=== PATIENT | male | born 1965 | race Caucasian/White ===

== ENCOUNTER 2021-07-25 22:31 | Inpatient (IN) | payer MEDICAID ==
[~2021-07-25] VITALS: Ht 152.4 cm; Wt 56.7 kg
--- NOTE | 2021-07-25 22:55 | NUR ---
PT BIB FRIEND FROM CAR C/O WEAKNESS AND FEELING CONFUSED. PT AWAKE A/OX3. ON R/A SATTING AT 95%. CONNECTED PT TO POX AND MONITOR.
[2021-07-25] MEDS ORDERED: IV NS 0.9% 1,000 ML BAG IV ONE (23:00)
--- NOTE | 2021-07-25 23:08 | NUR ---
DRY HEAT ROOM ATTENDANT AT PT'S BEDSIDE
--- NOTE | 2021-07-25 23:13 | NUR ---
LAC #20G S/L PATENT AND INTACT. BLOOD COLLECTED AND GIVEN TO LAB
[2021-07-25 23:23] LABS: BASOPHILS # (AUTO) 0.1 K/uL (0.0-0.2); BASOPHILS % (AUTO) 0.7 % (0.0-2.0); EOSINOPHILS % (AUTO) 0.3 % (0.0-6.0); HEMATOCRIT 53 % (39-51); LYMPHOCYTES # (AUTO) 1.4 K/uL (0.8-4.8); LYMPHOCYTES % (AUTO) 8.8 % (20.0-44.0); MEAN CORPUSCULAR HGB CONC 32 g/dl (31.0-36.0); MEAN CORPUSCULAR VOLUME 96 fL (80-96); MONOCYTES # (AUTO) 1.4 K/uL (0.1-1.30); MONOCYTES % (AUTO) 8.6 % (2.0-12.0); NEUTROPHILS % (AUTO) 81.6 % (43.0-81.0); PLATELET COUNT (AUTO) 293 K/uL (150-450); RED BLOOD CELL COUNT(AUTO) 5.51 MIL/uL (4.5-6.0)
[2021-07-25 23:35] LABS: BILIRUBIN,URINE SMALL (NEGATIVE); COLOR,URINE YELLOW (YELLOW); LEUKOCYTE ESTERASE ,URINE NEGATIVE (NEGATIVE); NITRITE, URINE NEGATIVE (NEGATIVE); PH,URINE 5.5 (5.0-8.0); PROTEIN,URINE 30 mg/dl (NEGATIVE); UGLUCOSE >=1000 mg/dL (NEGATIVE); UROBILINOGEN,URINE 0.2 EU/dL (0.2)
--- NOTE | 2021-07-25 23:40 | NUR ---
COVID SWAB COLLECTED AND SENT TO LAB
--- NOTE | 2021-07-25 23:42 | NUR ---
PT TRANSPORTED TO CT SCAN VIA [facility]
--- NOTE | 2021-07-25 23:48 | NUR ---
PT RETURNED FROM [facility]
[2021-07-26] VITALS (34 sets, daily range): BP systolic 122–168; BP diastolic 55–99
[2021-07-26 00:03] LABS: BACTERIA,URINE None seen /HPF (None Seen); RBC,URINE 0-2 /HPF (0-2); SQUAMOUS EPITHELIAL CELL,UR Few /HPF (None Seen); WBC,URINE 0-2 /HPF (0-3)
[2021-07-26 00:39] LABS: ALANINE AMINOTRANSFERASE 17 U/L (12-78); ALBUMIN 4.6 g/dL (3.4-5.0); ALKALINE PHOSPHATASE 142 U/L (46-116); ASPARTATE AMINOTRANSFERASE 7 U/L (15-37); BILIRUBIN,DIRECT 0.2 mg/dL (0.0-0.2); BILIRUBIN,TOTAL 0.9 mg/dL (0.2-1.0); CALCIUM, SERUM 9.4 mg/dL (8.5-10.1); CHLORIDE 89 mmol/L (98-107); CREATININE 1.8 mg/dL (0.6-1.3); POTASSIUM 5.1 mmol/L (3.5-5.1); SODIUM SERUM 130 mmol/L (136-145); TOTAL PROTEIN, SERUM 8.8 g/dL (6.4-8.2); UREA NITROGEN, BLOOD 33 mg/dL (7-18)
[2021-07-26 00:41] LABS: CARBON DIOXIDE 8 mmol/L (21-32); GLUCOSE 417 mg/dL (74-106)
--- NOTE | 2021-07-26 00:41 | NUR ---
CALL FROM LAB. GLUCOSE [phone]. DR SCOTT NOTIFIED.
[2021-07-26] MEDS ORDERED: POTASSIUM CL. PREMIX PERIPHER. 0 ML ONE (00:54)
[2021-07-26] MEDS ORDERED: INSULIN REGULAR, HUMAN 100 UNIT/ML 10 ML VIAL ONE ×2 (00:54→01:12)
[2021-07-26] MEDS ORDERED: INSULIN REGULAR, HUMAN 100 UNITS in IV NS 0.9% 100 ML IV PRN ×2 (01:00)
[2021-07-26] MEDS ORDERED: IV PREMIX NS +20MEQ KCL 1,000 L IV PRN (01:00)
[2021-07-26] MEDS ORDERED: IV PREMIX NS +20MEQ KCL 1 L IV ONE (01:09)
--- NOTE | 2021-07-26 01:09 | NUR ---
MRSA SWAB COLLECTED AND SENT TO LAB. PATIENT'S BELONGINGS LIST DONE.
--- NOTE | 2021-07-26 01:20 | NUR ---
INSULIN DRIP INITIATED AT 5.05 UNITS/HR PER MD ORDER. POC GLUCOSE [phone] PRIOR TO ADMIN.
[2021-07-26] MEDS ORDERED: IV NS 0.9% 1,000 ML BAG IV ONE (01:30)
[2021-07-26] MEDS ORDERED: ACETAMINOPHEN 325 MG TABLET PO PRN (02:00)
[2021-07-26] MEDS ORDERED: ZOLPIDEM TARTRATE 5 MG TABLET PO PRN (02:00)
[2021-07-26] MEDS ORDERED: DEXTROSE 50%-WATER 50 ML DISP.SYRIN IV PRN ×2 (02:00→13:30)
[2021-07-26] MEDS ORDERED: MAGNESIUM HYDROXIDE 30 ML UDC PO PRN (02:00)
[2021-07-26] MEDS ORDERED: Z GUARD REMEDY 4 OZ OINT TP PRN (02:00)
[2021-07-26] MEDS ORDERED: IV NS 0.9% 1,000 ML IV SCH (02:00)
--- NOTE | 2021-07-26 02:03 | NUR ---
CALLED FOR REPORT NURSE NOT AVAILABLE.
--- NOTE | 2021-07-26 02:10 | NUR ---
REPORT GIVEN TO ED
--- NOTE | 2021-07-26 02:31 | NUR ---
PT TRANSPORTED TO ROOM 261 ON CELLAR SUPERVISOR PER ACLS PROTOCOL WITHOUT INCIDENT. V/S STABLE AT TIME OF TRANSFER
[2021-07-26] MEDS ORDERED: INSULIN REGULAR, HUMAN 100 UNIT in IV NS 0.9% 99 ML IV PRN ×2 (03:00)
[2021-07-26] MEDS: BLOOD SUGAR DIAGNOSTIC 1 EACH STRIP IN SCH ×8 (03:04→21:09)
[2021-07-26 03:20] LABS: CALCIUM, SERUM 8.4 mg/dL (8.5-10.1); CREATININE 1.6 mg/dL (0.6-1.3); MAGNESIUM 2.6 mg/dL (1.8-2.4); POTASSIUM 4.8 mmol/L (3.5-5.1)
[2021-07-26 04:50] LABS: BASOPHILS % (AUTO) 0.3 % (0.0-2.0); HEMATOCRIT 43 % (39-51); HEMOGLOBIN 14.4 g/dL (13.5-17.5); LYMPHOCYTES # (AUTO) 1.8 K/uL (0.8-4.8); LYMPHOCYTES % (AUTO) 13.9 % (20.0-44.0); MEAN CORPUSCULAR HGB CONC 33 g/dl (31.0-36.0); MEAN CORPUSCULAR VOLUME 93 fL (80-96); MONOCYTES # (AUTO) 1.5 K/uL (0.1-1.30); MONOCYTES % (AUTO) 11.5 % (2.0-12.0); NEUTROPHILS # (AUTO) 9.5 K/uL (1.8-8.9); NEUTROPHILS % (AUTO) 74.3 % (43.0-81.0); PLATELET COUNT (AUTO) 242 K/uL (150-450); RED BLOOD CELL COUNT(AUTO) 4.66 MIL/uL (4.5-6.0); WHITE BLOOD COUNT (AUTO) 12.7 K/uL (4.3-11.0)
[2021-07-26 05:13] LABS: CALCIUM, SERUM 7.9 mg/dL (8.5-10.1); CREATININE 1.4 mg/dL (0.6-1.3); MAGNESIUM 2.5 mg/dL (1.8-2.4); PHOSPHORUS 1.9 mg/dL (2.5-4.9); POTASSIUM 3.5 mmol/L (3.5-5.1)
[2021-07-26 05:21] LABS: CHOLESTEROL 188 mg/dL (<200); HDL CHOLESTEROL 51 mg/dL (40-60); LDL 106 mg/dL (0-99); TRIGLYCERIDES 114 mg/dL (30-150)
[2021-07-26] MEDS ORDERED: IV D5/0.45 NACL 1,000 ML IV PRN (05:30)
[2021-07-26] MEDS: Potassium Chloride 40 MEQ in IV D5/0.45 NACL 1,000 ML IV SCH ×3 (07:07→22:57)
--- NOTE | 2021-07-26 07:10 | NUR ---
RN NOTES RECEIVED PT ON BED, A/O X1-2, ON RA, NO SOB NOTED, ON TELE ST HR IN 110'S, PT ON INSULIN DRIP , IV SITES CLEAN,DRY AND INTACT, IVF AT 150CC/HR RUNNING , SR UP x3, CALL LIGHT WITHIN EASY REACH, WILL ENDORSE TO AIRCRAFT ORDNANCE SYSTEMS MECHANIC NURSE FOR CONTINUITY OF CARE .
--- NOTE | 2021-07-26 08:37 | NUR ---
WOUND CARE CONSULT: PT PRESENTS WITH LESION TO RT HEEL AND RASH TO BUTTOCKS, PRESENT ON ADMISSION. RECOMMENDATIONS MADE FOR SKIN PROTECTION. DISCUSSED WITH NURSING STAFF. DPM CONSULT RECOMMENDED. MD IN AGREEMENT WITH PLAN OF CARE. PT ABLE TO ASSIST WITH TURNING AND REPOSITIONING AND IS CONTINENT AT THIS TIME.
[2021-07-26] MEDS: CLOTRIMAZOLE 1% 15 GM TUBE TP SCH ×2 (10:50→16:20)
[2021-07-26] MEDS ORDERED: Sodium Phosphate 30 MMOL in IV NS 0.9% 250 ML IV SCH (11:00)
[2021-07-26 11:57] LABS: CALCIUM, SERUM 8.2 mg/dL (8.5-10.1); CREATININE 1.3 mg/dL (0.6-1.3); POTASSIUM 3.6 mmol/L (3.5-5.1)
[2021-07-26 12:33] LABS: CALCIUM, SERUM 7.9 mg/dL (8.5-10.1); CREATININE 1.2 mg/dL (0.6-1.3); MAGNESIUM 2.6 mg/dL (1.8-2.4); POTASSIUM 3.7 mmol/L (3.5-5.1)
[2021-07-26] MEDS ORDERED: BLOOD SUGAR DIAGNOSTIC 1 EACH STRIP IN SCH (13:30)
[2021-07-26] MEDS: INSULIN REGULAR, HUMAN 100 UNIT/ML 3 ML VIAL SQ PRN ×3 (13:49→21:13)
--- NOTE | 2021-07-26 15:05 | NUR ---
SS Consult: SS received consult for homelessness. Pt. is a 55-year-old male that was brought into the hospital for bizarre behavior and generalized weakness. Pt. was alert and oriented x1. SW attempted to interview pt. and he was not able to provide any significant history. Pt. was responding I dont know and I dont remember to every question that was asked. SW provided resources and left it at bedside. SW will follow-up once pt. is more alert and oriented.
--- NOTE | 2021-07-26 17:00 | NUR ---
RN NOTES RAMANA DECAL CUTTER NOTIFIED REGARDING SBP IN 160'S , NEW ORDER RECEIVED , CONTINUE TO MONITOR
[2021-07-26] MEDS: ONDANSETRON HCL/PF 4 MG/2 ML VIAL IVP PRN (17:03)
--- NOTE | 2021-07-26 18:08 | NUR ---
RN NOTES PT RESTING IN BED , POOR APPTITE, REFUSES TO EAT AT TIMES ,IVF RUNNING AT 75CC/HR , IV SITES CLEAN ,DRY AND INTACT, NO SIGN AND SYMPTOMS OF HYPER AND HYPO GLYCEMIA NOTED, SR UP x3, CALL LIGHT WITHIN EASY REACH, BED LOCKED AND IN LOWEST POSITION, WILL ENDORSE TO RURAL MAIL CONTRACTOR NURSE FOR CONTINUITY OF CARE .
--- NOTE | 2021-07-26 20:00 | NUR ---
ICU NOTES Received patient A/OX2.DX:DKA .VS stable.Normotensive.Respiration and unlabored saturation wnl.IVF infusing and site intact.Patient wants to drink water.Offered Jello but not eating.Patient Independent with bed mobility and sit at the edge of the bed when he voids.Safety measures implemented with call light at bedside.Will monitor blood sugar Q 4 HRS.Denies pain or any discomfort.
[2021-07-26 20:44] LABS: MAGNESIUM 2.3 mg/dL (1.8-2.4); PHOSPHORUS 3.2 mg/dL (2.5-4.9)
[2021-07-26 22:24] LABS: MAGNESIUM 2.4 mg/dL (1.8-2.4); PHOSPHORUS 3.3 mg/dL (2.5-4.9)
[2021-07-27] VITALS (19 sets, daily range): BP systolic 134–172; BP diastolic 74–95
[2021-07-27 00:44] LABS: MAGNESIUM 2.1 mg/dL (1.8-2.4); PHOSPHORUS 1.6 mg/dL (2.5-4.9)
[2021-07-27] MEDS: ONDANSETRON HCL/PF 4 MG/2 ML VIAL IVP PRN ×3 (00:58→22:24)
[2021-07-27] MEDS: INSULIN REGULAR, HUMAN 100 UNIT/ML 3 ML VIAL SQ PRN ×6 (01:37→22:07)
[2021-07-27] MEDS: BLOOD SUGAR DIAGNOSTIC 1 EACH STRIP IN SCH ×6 (01:38→21:26)
[2021-07-27 04:13] LABS: BASOPHILS % (AUTO) 0.5 % (0.0-2.0); EOSINOPHILS % (AUTO) 0.3 % (0.0-6.0); HEMATOCRIT 40 % (39-51); HEMOGLOBIN 13.6 g/dL (13.5-17.5); LYMPHOCYTES # (AUTO) 1.3 K/uL (0.8-4.8); LYMPHOCYTES % (AUTO) 12.3 % (20.0-44.0); MEAN CORPUSCULAR HGB CONC 34 g/dl (31.0-36.0); MEAN CORPUSCULAR VOLUME 91 fL (80-96); MONOCYTES # (AUTO) 1.2 K/uL (0.1-1.30); MONOCYTES % (AUTO) 12.2 % (2.0-12.0); NEUTROPHILS # (AUTO) 7.6 K/uL (1.8-8.9); NEUTROPHILS % (AUTO) 74.7 % (43.0-81.0); PLATELET COUNT (AUTO) 198 K/uL (150-450); RED BLOOD CELL COUNT(AUTO) 4.39 MIL/uL (4.5-6.0); WHITE BLOOD COUNT (AUTO) 10.2 K/uL (4.3-11.0)
[2021-07-27 04:39] LABS: CALCIUM, SERUM 8.3 mg/dL (8.5-10.1); MAGNESIUM 2.1 mg/dL (1.8-2.4); PHOSPHORUS 1.7 mg/dL (2.5-4.9); POTASSIUM 3.3 mmol/L (3.5-5.1)
[2021-07-27] MEDS: MAG HYDROX/AL HYDROX/SIMETH 30 ML UDC PO PRN ×2 (05:03→20:02)
--- NOTE | 2021-07-27 07:00 | NUR ---
RN NOTES RECEIVED PT ON BED, A/O X1-2, ON RA, NO SOB NOTED, ON TELE SR-ST, IV SITES CLEAN,DRY AND INTACT, IVF AT 150CC/HR RUNNING , SR UP x3, CALL LIGHT WITHIN EASY REACH. CONTINUE TO MONITOR
--- NOTE | 2021-07-27 07:09 | NUR ---
END NOTE Patient awake alert oriented x2 but with periods of confusion.RA saturation wnl.SR/ST. Vital signs remain stable.Complaints of heartburns prn medications administered with relief. IVF infusing well.Patient refused AM care he said later.Kept comfortable.Report given to day shift for KONSTANTIN.
[2021-07-27] MEDS: CLOTRIMAZOLE 1% 15 GM TUBE TP SCH ×2 (09:07→16:41)
[2021-07-27] MEDS: Potassium Chloride 40 MEQ in IV D5/0.45 NACL 1,000 ML IV SCH (10:24)
--- NOTE | 2021-07-27 10:28 | NUR ---
RN NOTES PIPER PSCHY NOTIFIED REGARDING PSCHY CONSULT , FACE SHEET FACED
--- NOTE | 2021-07-27 10:30 | NUR ---
Psych consult by Dr. Villalobos has been requested due to reports of pt. being med non-compliant at home due to paranoia and pt. has some confusion that may be associated with his mental health. SW discussed with mason MAZA who is agreeable and SW notified Tucker MAZA covering for Dr. Villalobos stated he will try to see patient today.
[2021-07-27] MEDS: METOCLOPRAMIDE HCL 10 MG/2 ML VIAL IV PRN (10:36)
[2021-07-27] MEDS ORDERED: Sodium Phosphate 30 MMOL in IV NS 0.9% 250 ML IV SCH (11:00)
--- NOTE | 2021-07-27 15:16 | NUR ---
SS Note: SW met with pt. bedside. The pt. is alert & oriented x 4. However, pt. has some lapses in his custodial memory. The pt. appears unkempt, drowsy and some weakness. Charge nurse stated pt. may still be dehydrated. Pt.'s speech is WNL. Pt. 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 Pt. states he olguin his car outside of his friends house (Anshul [facility] [phone]; [id number] [facility] [address]). SW asked pt. if he is able to take care of himself physically while experiencing homelessness. Pt. states "I believe so, I think I buy food with my SSI". SW asked pt. how he manages the diabetes. Pt. stated "it is new". Pt. cannot recall how much he receives monthly from SSI. Pt. denies psych history. Pt. denies SI/HI and denies hallucinations. Pt. denies drug or alcohol abuse. Patient gave SW verbal consent to speak with his friend, Anshul Angel [phone]. Anshul notified SW that pt. has 2 friends with same first name. Anshul stated hes lives in [place] and other friend lives in [place](Anshul [facility] [phone]). Anshul also stated patient's son is Anshul Herrera [phone] and he resides in [place]. Per Anshul, the pt. has a Stroke about 6 months ago due to really elevated blood sugar levels in the "600's" and was then experiencing "hallucinations or delirium". Per Anshul, the pt. was hospitalized for about 2 weeks and was then discharged to a custodial where they helped him manage the diabetes. Per Anshul, the pt. could only remain in that custodial for 1 month and so patient began to live out of his car but patient seemed to be okay for about 1 month and after that pt. began to experience confusion and weakness so they brought him into the hospital. Per Anshul, pt. may not be able to manage the diabetes on his own while experiencing homelessness. SW discussed possible placement at assisted living and pt. is agreeable. Pt. states he is unsure of how much SSI he received monthly. SW discussed with Annalise BOWDEN who will assist with placement. SW will remain available as needed. Pt. signed homeless waiver and it was placed int he chart. Pt. was given homeless resources yesterday and has them at bedside.
--- NOTE | 2021-07-27 15:20 | NUR ---
RN NOTES PT TRANSFERED TO ROOM 327-2 VIA ACLS PROTOCAL IN STABLE CONDITION WITH ALL HIS BELONGINGS , REPORT GIVEN TO MATEO LOPEZ FOR CONTINUITIY OF CARE .
--- NOTE | 2021-07-27 15:36 | NUR ---
E MAIL SYSTEM ADMINISTRATOR NOTES RECEIVED PT FROM [employer] VIA WHEELCHAIR, ASSISTED PT TO BED, MADE COMFORTABLE, ROOM SET UP ORIENTATION PROVIDED, VERBALIZED UNDERSTANDING, PT IS AWAKE AND ALERT, NO COMPLAINT OF PAIN, NOT IN DISTRESS, CALL LIGHT PLACED WITHIN REACH, KEPT PT COMFORTABLE.
--- NOTE | 2021-07-27 18:11 | NUR ---
DIRECTOR OF CONTENT MARKETING NOTES PT IN BED, ASLEEP, EASY TO AROUSE, ALERT AND VERBALLY RESPONSIVE, ENCOURAGED INCREASED PO INTAKE, IV FLUIDS INFUSING WELL, BS CHECKED, INSULIN GIVEN PER SLIDING SCALE ORDERED, KEPT WARM AND COMFORTABLE IN BED.
--- NOTE | 2021-07-27 19:20 | NUR ---
PULMONOLOGIST INTENSIVIST OPENING NOTES RECEIVED PATIENT ON BED AWAKE, ALERT AND ORIENTED X 2. BREATHING IS EVEN AND NONLABORED. ON ROOM AIR, TOLERATING WELL. IN TELE MONITORING WITH READING OF SR HR 79. IN NO ACUTE DISTRESS NOTED. DENIES ANY PAIN OF THIS TIME. WITH IV ACCESS AT LEFT AC G20; PATENT, INTACT AND SALINE LOCKED. WITH ONGOING IV INFUSION AT RIGHT AC OF D5 1/2 NS WITH 40 MEQ KCL REGULATED AT 75 ML/HR ORDERED. ABLE TO MAKE NEEDS KNOWN. SAFETY MEASURES IMPLEMENTED: CALL LIGHT AND TABLE WITHIN EASY REACH, SIDE RAILS IS UP X 2; BED IS IN LOWEST LOCKED POSITION. WILL CONTINUE TO MONITOR
--- NOTE | 2021-07-27 19:40 | NUR ---
COMBINER OPERATOR NOTES COMPLAINED OF HEARTBURN; MAALOX SUSPENSION 30 ML PRN GIVEN ORALLY ORDERED.
--- NOTE | 2021-07-27 21:26 | NUR ---
SMT TECHNICIAN NOTES BLOOD SUGAR CHECKED WITH RESULT OF 136 MG/DL; 2 UNITS OF INSULIN GIVEN PER SLIDING SCALE ORDERED.
[2021-07-27] MEDS ORDERED: INSULIN GLARGINE, 100 UNIT/ML CARTRIDGE SQ SCH (22:00)
--- NOTE | 2021-07-27 22:24 | NUR ---
PRODUCTION SUPPORT DEVELOPER NOTES COMPLAINED OF BEING NAUSEOUS; PRN ZOFRAN 2ML GIVEN IVP ORDERED.
[2021-07-28] VITALS: BP 151/97
[2021-07-28] MEDS: METOCLOPRAMIDE HCL 10 MG/2 ML VIAL IV PRN (01:16)
--- NOTE | 2021-07-28 01:20 | NUR ---
AUTOTRANSFUSIONIST NOTES PATIENT VERBALIZED FEELING NAUSEOUS. METOCLOPRAMIDE HCL 1ML PRN GIVEN IVTT ORDERED. BLOOD SUGAR CHECKED WITH RESULT OF 186 MG/DL. PATIENT REFUSED TO RECEIVE ANY INSULIN COVERAGE.
[2021-07-28] MEDS: BLOOD SUGAR DIAGNOSTIC 1 EACH STRIP IN SCH ×6 (01:35→21:11)
[2021-07-28] MEDS: Potassium Chloride 40 MEQ in IV D5/0.45 NACL 1,000 ML IV SCH (01:35)
[2021-07-28 04:00] VITALS: BP 143/89
[2021-07-28] MEDS: INSULIN REGULAR, HUMAN 100 UNIT/ML 3 ML VIAL SQ PRN ×5 (05:14→22:24)
--- NOTE | 2021-07-28 05:16 | NUR ---
FIRST SAMPLER NOTES BLOOD SUGAR CHECKED WITH RESULT OF 242 MG/DL; 6 UNITS OF REGULAR INSULIN GIVEN SQ COVERAGE PER SLIDING SCALE ORDERED.
[2021-07-28 07:26] LABS: CALCIUM, SERUM 8.3 mg/dL (8.5-10.1); CREATININE 0.6 mg/dL (0.6-1.3); MAGNESIUM 2.1 mg/dL (1.8-2.4); PHOSPHORUS 2.5 mg/dL (2.5-4.9); POTASSIUM 3.1 mmol/L (3.5-5.1)
--- NOTE | 2021-07-28 07:28 | NUR ---
GUARD RANGE CLOSING NOTES PATIENT IS ON BED; AWAKE, ALERT AND ORIENTED X 1-2. ON ROOM AIR, TOLERATING WELL. IN NO ACUTE DISTRESS NOTED. NO SOB NOTED. NEEDS ATTENDED. IV ACCESS AT RIGHT AC; PATENT AND INTACT. SAFETY MEASURES IN PLACED. ENDORSED TO NURSE STEEN FOR CONTINUITY OF CARE.
--- NOTE | 2021-07-28 07:32 | NUR ---
RN OPENING NOTE PT IN BED AWAKE, ALERT AND ORIENTED X 2. BREATHING IS EVEN AND NONLABORED. ON ROOM AIR, TOLERATING WELL. IN TELE MONITORING WITH READING OF SR HR 82. IN NO ACUTE DISTRESS NOTED. DENIES PAIN. WITH IV ACCESS AT LAC #20 G WITH ONGOING IV INFUSION AT RAC OF D5 1/2 NS WITH 40 MEQ KCL REGULATED AT 75 ML/HR ORDERED. ABLE TO MAKE NEEDS KNOWN. SAFETY MEASURES IMPLEMENTED: CALL LIGHT AND TABLE WITHIN EASY REACH, SIDE RAILS IS UP X 2; BED IS IN LOWEST LOCKED POSITION. WILL CONTINUE TO MONITOR / ASSIST
[2021-07-28 08:00] VITALS: BP 139/77
[2021-07-28] MEDS ORDERED: POTASSIUM CHLORIDE 20 MEQ TAB.PRT.SR PO ONE ×2 (09:00→14:00)
[2021-07-28] MEDS: CLOTRIMAZOLE 1% 15 GM TUBE TP SCH ×2 (09:04→16:40)
--- NOTE | 2021-07-28 11:00 | NUR ---
RN NOTE- PT ON IVF D5 1/2 NS AND IS DIABETIC... PLUS PT IVF W KCL . NOTIFIED MOE GARCIA PT RECEIVING PO KCL SUPPLEMENTATION WELL.
--- NOTE | 2021-07-28 14:51 | NUR ---
MOE GARCIA ORDERED IVF DC'D AND PSYCHE CONSULT FOR DEPRESSION
[2021-07-28 16:00] VITALS: BP 152/72
--- NOTE | 2021-07-28 18:32 | NUR ---
RN closing NOTE PT AWAKE, ALERT AND ORIENTED X 2. BREATHING IS EVEN AND NONLABORED. ON ROOM AIR, TOLERATING WELL. IN TELE MONITORING WITH READING OF SR HR 80. IN NO ACUTE DISTRESS NOTED. DENIES PAIN. WITH IV ACCESS AT LAC #20 ABLE TO MAKE NEEDS KNOWN. PSYCHE CONSULT PENDING. SAFETY MEASURES IMPLEMENTED: CALL LIGHT AND TABLE WITHIN EASY REACH, SIDE RAILS IS UP X 2; BED IS IN LOWEST LOCKED POSITION. WILL CONTINUE TO MONITOR / ASSIST
[2021-07-28 20:00] VITALS: BP 146/92
--- NOTE | 2021-07-28 20:00 | NUR ---
MUTTON PUNCHER OPENING NOTES RECEIVED PATIENT LYING IN BED AWAKE. A/O X2 WITH PERIODS OF CONFUSION. NO APPARENT DISTRESS NOTED. NO C/O PAIN AT THIS TIME. PATIENT VERBALIZED WANTING TO GO TO HIS CAR FOR FEAR OF CAR THEFT. ON TELE MONITOR READING SINUS RHYTHM AT 90 BPM. HAS LEFT AC IV ACCESS #20G AND SALINE LOCKED. SAFETY MEASURES IN PLACE. WILL CONTINUE PLAN OF CARE.
[2021-07-28] MEDS ORDERED: INSULIN GLARGINE, 100 UNIT/ML CARTRIDGE SQ SCH (22:00)
[2021-07-28] MEDS: ONDANSETRON HCL/PF 4 MG/2 ML VIAL IVP PRN (23:26)
[2021-07-29] VITALS: BP 147/92
[2021-07-29] MEDS: BLOOD SUGAR DIAGNOSTIC 1 EACH STRIP IN SCH ×4 (01:02→12:32)
[2021-07-29] MEDS: INSULIN REGULAR, HUMAN 100 UNIT/ML 3 ML VIAL SQ PRN ×2 (01:29→12:33)
[2021-07-29 04:00] VITALS: BP 132/70
--- NOTE | 2021-07-29 06:52 | NUR ---
COUNTY BAILIFF CLOSING NOTES PATIENT LYING IN BED WITH EYES CLOSED. A/O X2 WITH PERIODS OF CONFUSION AND FORGETFULNESS. NO C/O PAIN AT THIS TIME. NO SOB OR NOTED. PATIENT CLAIMS HE HAS 2 CELLPHONES AND HIS PASSPORT IS MISSING, INFORMED THAT WE HAVE A LIST OF HIS BELONGINGS. PERIODS OF ANXIETY NOTED. EMOTIONAL SUPPORT PROVIDED. ON TELE MONITOR READING SINUS RHYTHM AT 82 BPM. HAS LEFT AC IV ACCESS #20G AND SALINE LOCKED. INTACT, PATENT AND FLUSHING. ALL MEDS GIVEN AND NEEDS ATTENDED. PROVIDED SOCKS TO PROTECT RIGHT HEEL WOUND. HS SNACK GIVEN. SAFETY MEASURES IN PLACE: BED LOW AND LOCKED, SIDE RAILS UP X2, CALL LIGHT WITHIN REACH.
--- NOTE | 2021-07-29 07:54 | NUR ---
CUPOLA TENDER OPENING NOTE RECEIVED PATIENT AWAKE IN BED. A/O X 2 WITH EPSIDODES OF CONFUSION. NO S/SX OF DISTRESS NOTED. NO SOB. NO C/O PAIN. BREATHING IS EVEN AND UNLABORED. PT TOLEARTING WELL ON ROOM AIR PULSE OX SATURATING AT 98%. IV ACCESS LAC#20 PATENT AND INTACT-SL.PT WITH EXTERNAL FACILITY MAINTENANCE MECHANIC WITH READING SR 82. SAFETY MEASURES IN PLACE WITH BED LOCKED IN LOW POSITION. SIDE RAILS UP X2. CALL LIGHT IS WITHIN REACH. WILL CONTINUE TO MONITOR PATIENT THROUGHOUT SHIFT.
[2021-07-29 08:00] VITALS: BP 145/89
[2021-07-29] MEDS: CLOTRIMAZOLE 1% 15 GM TUBE TP SCH (08:43)
[2021-07-29] MEDS: ONDANSETRON HCL/PF 4 MG/2 ML VIAL IVP PRN (11:07)
[2021-07-29 12:00] VITALS: BP 137/86
--- NOTE | 2021-07-29 16:49 | NUR ---
BOTTLE GAUGER NOTES PT WAS DISCHARGED WITH STABLE VITALS. PT IS ALERT AND ORIENTED X 3. NO SOB. NO ACUTE DISTRESS NOTED. BREATHING IS EVEN AND UNLABORED. IV ACCESS AND ID BAND REMOVED. ALL DISCHARGE INSTRUCTIONS REVIEWED WITH PATIENT AND SIGNED; PT VERBALIZED UNDERSTANDING. PHOTOS TAKEN OF BODY WOUNDS. EXTERNAL RECEIVING WEIGHER REMOVED FROM PATIENT AND RETURNED TO MONITOR STATION. PT WAS ACCOMPANIED OUT THE UNIT BY MARS CELESTE.
== END 2021-07-29 17:03 | DRG 420 ==
LOC: ER 22:33 → ICU 07-26 01:16 → TELE 07-27 15:32
PROVIDERS: ADMIT Family Medicine; ATTEND Nurse Practitioner Acute Care
DX: E11.10 Type 2 diabetes mellitus with ketoacidosis without coma (principal); N17.0 Acute kidney failure with tubular necrosis; D71 Functional disorders of polymorphonuclear neutrophils; L97.419 Non-pressure chronic ulcer of right heel and midfoot with unspecified severity; F22 Delusional disorders; F29 Unspecified psychosis not due to a substance or known physiological condition; E86.1 Hypovolemia; E11.43 Type 2 diabetes mellitus with diabetic autonomic (poly)neuropathy; E11.42 Type 2 diabetes mellitus with diabetic polyneuropathy; E86.9 Volume depletion, unspecified; E87.1 Hypo-osmolality and hyponatremia; Z59.02 Unsheltered homelessness; K31.84 Gastroparesis; Z20.822 Contact with and (suspected) exposure to COVID-19; Z91.19 Patient's noncompliance with other medical treatment and regimen; E11.621 Type 2 diabetes mellitus with foot ulcer; E11.21 Type 2 diabetes mellitus with diabetic nephropathy; Z79.4 Long term (current) use of insulin; Z86.73 Personal history of transient ischemic attack (TIA), and cerebral infarction without residual deficits; F41.9 Anxiety disorder, unspecified; E87.6 Hypokalemia; D72.829 Elevated white blood cell count, unspecified; M62.562 Muscle wasting and atrophy, not elsewhere classified, left lower leg; M62.561 Muscle wasting and atrophy, not elsewhere classified, right lower leg; E11.65 Type 2 diabetes mellitus with hyperglycemia
CPT/HCPCS: 36415; 70450-TC; 71045-TC; 80048-TC; 80061-TC; 80076-TC; 81001; 82962-TC; 83735-TC; 84100-TC; 84484-TC; 85025-TC; 87081-TC; 97116-TC; 97530-TC; A9563; C9803; G0378; J1815; J2405; J2765; J3480; J3490; J7030; J7050

== ENCOUNTER 2021-08-13 00:16 | Emergency (ER) | payer MEDICAID ==
[~2021-08-13] VITALS: Ht 167.6 cm; Wt 54.4 kg
[2021-08-13] MEDS ORDERED: LORAZEPAM INJ 2 MG/ML VIAL ONE (01:54)
[2021-08-13] MEDS ORDERED: LORAZEPAM INJ 2 MG/ML VIAL IV ONE (02:00)
--- NOTE | 2021-08-13 02:00 | NUR ---
BIBFREIND C/O RIGHT FOOT WOUND AND HIGH BLOOD SUGAR. HX OF DIABETES AND NON-INSULIN ADHERENCE. PT AWAKE AND ALERT X3 AMBULATORY WITH STEADY GAIT BREATHING EVEN AND UNLABORED. PT CHANGED INTO GOWN AND V/S WNL.
--- NOTE | 2021-08-13 02:00 | NUR ---
20G IV LINE ESTABLISHED AT LF
[2021-08-13] MEDS ORDERED: IV NS 0.9% 1,000 ML BAG IV ONE (02:30)
[2021-08-13] MEDS ORDERED: INSULIN REGULAR, HUMAN 100 UNIT/ML 10 ML VIAL IV ONE (02:30)
--- NOTE | 2021-08-13 02:40 | NUR ---
INSURANCE COMMISSIONER AT BEDSIDE
[2021-08-13 02:51] LABS: BASOPHILS # (AUTO) 0.1 K/uL (0.0-0.2); BASOPHILS % (AUTO) 0.7 % (0.0-2.0); EOSINOPHILS % (AUTO) 0.5 % (0.0-6.0); HEMATOCRIT 37 % (39-51); HEMOGLOBIN 12.3 g/dL (13.5-17.5); LYMPHOCYTES # (AUTO) 1.7 K/uL (0.8-4.8); LYMPHOCYTES % (AUTO) 15.7 % (20.0-44.0); MEAN CORPUSCULAR HGB CONC 33 g/dl (31.0-36.0); MEAN CORPUSCULAR VOLUME 92 fL (80-96); MONOCYTES # (AUTO) 1.1 K/uL (0.1-1.30); MONOCYTES % (AUTO) 10.3 % (2.0-12.0); NEUTROPHILS % (AUTO) 72.8 % (43.0-81.0); PLATELET COUNT (AUTO) 336 K/uL (150-450); RED BLOOD CELL COUNT(AUTO) 3.97 MIL/uL (4.5-6.0)
--- NOTE | 2021-08-13 02:51 | NUR ---
PT UNABLE TO GIVE URINE AT THIS TIME.
[2021-08-13 03:03] LABS: CARBON DIOXIDE 30 mmol/L (21-32); CHLORIDE 95 mmol/L (98-107); CREATININE 1.1 mg/dL (0.6-1.3); POTASSIUM 3.9 mmol/L (3.5-5.1); SODIUM SERUM 130 mmol/L (136-145); UREA NITROGEN, BLOOD 16 mg/dL (7-18)
--- NOTE | 2021-08-13 03:09 | NUR ---
CT AT BEDSIDE
[2021-08-13 03:17] LABS: ALANINE AMINOTRANSFERASE 20 U/L (12-78); ALBUMIN 2.5 g/dL (3.4-5.0); ALKALINE PHOSPHATASE 252 U/L (46-116); ASPARTATE AMINOTRANSFERASE 14 U/L (15-37); BILIRUBIN,DIRECT 0.1 mg/dL (0.0-0.2); BILIRUBIN,TOTAL 0.3 mg/dL (0.2-1.0); LIPASE 315 U/L (73-393); TOTAL PROTEIN, SERUM 6.7 g/dL (6.4-8.2)
--- NOTE | 2021-08-13 03:23 | NUR ---
PT RETURNED FROM CT SCAN VIA GURNEY. PT STATES HE IS STILL UNABLE TO PROVIDE URINE SAMPLE. URINAL AT BEDSIDE
[2021-08-13 03:31] LABS: GLUCOSE 407 mg/dL (74-106)
[2021-08-13 04:23] LABS: BILIRUBIN,URINE NEGATIVE (NEGATIVE); COLOR,URINE YELLOW (YELLOW); LEUKOCYTE ESTERASE ,URINE NEGATIVE (NEGATIVE); NITRITE, URINE NEGATIVE (NEGATIVE); PH,URINE 5.5 (5.0-8.0); PROTEIN,URINE NEGATIVE (NEGATIVE); UGLUCOSE >=1000 mg/dL (NEGATIVE); UROBILINOGEN,URINE 0.2 EU/dL (0.2)
[2021-08-13] MEDS ORDERED: SULF1TAB48 PO (04:29)
[2021-08-13] MEDS ORDERED: CEPH500T PO (04:29)
[2021-08-13] MEDS ORDERED: CEPHALEXIN MONOHYDRATE 500 MG CAPSULE PO ONE ×2 (04:30→04:33)
[2021-08-13] MEDS ORDERED: SULFAMETH/TRIMETH 800/160 MG 1 UDTAB TABLET PO ONE (04:30)
[2021-08-13 04:31] LABS: BACTERIA,URINE None seen /HPF (None Seen); RBC,URINE 0-2 /HPF (0-2); SQUAMOUS EPITHELIAL CELL,UR Few /HPF (None Seen); WBC,URINE 0-2 /HPF (0-3)
[2021-08-13] MEDS ORDERED: SULFAMETH/TRIMETH 800/160 MG 1 UDTAB TABLET ONE (04:33)
--- NOTE | 2021-08-13 04:46 | NUR ---
Patient discharged to home in stable condition. Written and verbal after care instructions given. Patient verbalizes understanding of instruction. IV line removed and PT ambulatory with steady gait.
[2021-08-13 08:58] VITALS: BP 136/86
== END 2021-08-13 08:59 | disposition home or self-care (01) ==
LOC: ER 00:19
DX: S91.301A Unspecified open wound, right foot, initial encounter (principal); E87.1 Hypo-osmolality and hyponatremia; E11.65 Type 2 diabetes mellitus with hyperglycemia; Z86.73 Personal history of transient ischemic attack (TIA), and cerebral infarction without residual deficits; Z79.899 Other long term (current) drug therapy; X58.XXXA Exposure to other specified factors, initial encounter; Y93.89 Activity, other specified; Y92.89 Other specified places as the place of occurrence of the external cause; Y99.8 Other external cause status
CPT/HCPCS: 36415; 70450; 71045; 80048; 80076; 81001; 82962 ×2; 83605; 83690; 84484; 85025; 85730; 87040 ×2; 93005; 96361; 96374; 96375; 99285; J2060; J7030